=== PATIENT | female | born 1935 | race Caucasian/White ===

== ENCOUNTER 2024-02-18 10:55 | Inpatient (IN) | payer MEDICARE, OTHER ==
[~2024-02-18] VITALS: Ht 162.6 cm; Wt 68.6 kg
[2024-02-18 11:33] LABS: Basophils # (auto) 0 10 ^3/uL (0-0.2); Basophils % (auto) 0.4 % (0.0-2.0); Eosinophils # (auto) 0 10 ^3/uL (0-0.8); Eosinophils % (auto) 0.4 % (0.0-7.0); Hematocrit 41.3 % (36.0-46.0); Hemoglobin 13.7 g/dL (12.2-16.2); Lymphocytes # (auto) 0.9 10 ^3/uL (0.4-5.4); Lymphocytes % (auto) 9.3 % (10.0-50.0); Mean Corpuscular Hemoglobin 30.4 pg (28.0-32.0); Mean Corpuscular Hgb Conc. 33.1 g/dL (32.0-36.0); Mean Corpuscular Volume 91.9 fL (80.0-100.0); Monocytes # (auto) 0.6 10 ^3/uL (0-1.3); Monocytes % (auto) 6.1 % (0.0-12.0); Neutrophils # (auto) 7.8 10 ^3/uL (1.6-8.6); Neutrophils % (auto) 83.8 % (37.0-80.0); Platelet Count (auto) 215 10^3/uL (140-450); White Blood Cell 9.3 10^3/uL (4.4-10.8)
--- NOTE | 2024-02-18 11:33 | ED.PDOC ---
History of Present Illness HPI Comments 88-year-old female with a history of AFib and thyroidectomy brought in by EMS from [facility] complaining of left hip pain due to a fall. Patient states she fell this morning at home, but was subsequently able to get up and ambulate. She states her left lower extremity was having some discomfort after the fall. While she was ambulating at [facility], states her left lower extremity gave out, and she again fell onto her left hip. She denies hitting her head, losing consciousness, or sustaining any other injuries. She states she was unable to weightbear on the left lower extremity after the most recent fall. She denies any numbness, weakness or vision changes. Chief Complaint: Fall Injury Time Seen by MD: 11:00 Primary Care Provider: COCO Post Notes: Nurses Notes, Admeasurer Notes, Medications, Allergies Allergies: Coded Allergies: Penicillins (Verified Allergy, Unknown, 02/18/24) Sulfa Antibiotics (Verified Allergy, Unknown, 02/18/24) Information Source: Patient, Emergency Med Personnel Mode of Arrival: EMS Severity: Moderate Timing: Minutes Duration: Since onset, Minutes Prehospital treatment: None Past Medical History PAST MEDICAL HISTORY: AFIB Surgical History: Hysterectomy, Thyroidectomy VAMP MARKER History: No Pertinent VAMP MARKER History Family History Family History: Reviewed,noncontributory to illness, Unknown Social History Smoker: Non-Smoker Alcohol: Denies ETOH Use Drugs: Denies Drug Use Lives In: Home Constitutional: denies: chills, diaphoresis, fatigue, fever, malaise, sweats, weakness, others EENTM: denies: blurred vision, double vision, ear bleeding, ear discharge, ear drainage, ear pain, ear ringing, eye pain, eye redness, hearing loss, mouth pain, mouth swelling, nasal discharge, nose bleeding, nose congestion, nose pain, photophobia, tearing, throat pain, throat swelling, voice changes, others Respiratory: denies: cough, hemoptysis, orthopnea, SOB at rest, shortness of breath, SOB with excertion, stridor, wheezing, others Cardiovascular: denies: chest pain, dizzy spells, diaphoresis, Dyspnea on exertion, edema, irregular heart beat, left arm pain, lightheadedness, palpitations, PND, syncope, others Gastrointestinal: denies: abdomen distended, abdominal pain, blood streaked bowels, constipated, diarrhea, dysphagia, difficulty swallowing, hematemesis, melena, nausea, poor appetite, poor fluid intake, rectal bleeding, rectal pain, vomiting, others Genitourinary: denies: abnormal vagina bleeding, burning, dyspareunia, dysuria, flank pain, frequency, hematuria, incontinence, pain, , vagina discharge, urgency, others Neurological: denies: dizziness, fainting, headache, left sided numbness, left sided weakness, numbness, paresthesia, pre-existing deficit, right sided numbness, right sided weakness, seizure, speech problems, tingling, tremors, weakness, others Musculoskeletal: reports: others (Hip pain); denies: back pain, gout, joint pain, joint swelling, muscle pain, muscle stiffness, neck pain Integumetry: denies: bruises, change in color, change in hair/nails, dryness, laceration, lesions, lumps, rash, wounds, others Allergic/Immunocompromised: denies: Difficulty Healing, Frequent Infections, Hives, Itching, others Hematologic/Lymphatic: denies: anemia, blood clots, easy bleeding, easy bruising, swollen glands, others Endocrine: denies: excessive hunger, excessive sweating, excessive thirst, excessive urination, flushing, intolerance to cold, intolerance to heat, unexplained weight gain, unexplained weight loss, others Psychiatric: denies: anxiety, bipolar disorder, depression, hopeless, panic disorder, schizophrenia, sleepless, suicidal, others All Other Systems: Reviewed and Negative Physical Exam General Appearance: No Apparent Distress HEENT: PERRL/EOMI, Other (No head, facial or scalp tenderness) Neck: Full Range of Motion, Non-Tender, Normal Inspection, Supple Respiratory: Lungs Clear, No Accessory Muscle Use, No Respiratory Distress, Normal Breath Sounds Cardiovascular: No Edema, No JVD, Regular Rate/Rhythm Breast Exam: Deferred Gastrointestinal: Non Tender, Soft Genitalia: Deferred Pelvic: Deferred Rectal: Deferred Extremities: Tender, Other (Left lower extremity slightly shortened and externally rotated. Pain with internal/external rotation at the left hip joint. Soft tissue tenderness left lateral hip area.) Neurologic: Alert (Oriented x4), Normal Affect, Normal Mood, Other (Moves all extremities. Sensation grossly intact all extremities. No gross focal deficit.) Cerebellar Function: NOT DONE Reflexes: NOT DONE Skin: Dry, Normal Color, Warm Peripheral Pulses: 2+ dorsalis pedis (R), 2+ dorsalis pedis (L) Lymphatic: NOT DONE Was a procedure done? Was a procedure done?: No Differential Dx Considerations may include: Fracture, dislocation, contusion, other soft tissue injury, electrolyte imbalanc e, arrhythmia or other cardiac event, infection, among others X-Ray, Labs, Meds, VS Vital Signs Date Time Temp Pulse Resp B/P (MAP) Pulse Ox O2 Delivery O2 Flow Rate FiO2 02/18/24 12:09 83 18 182/85 02/18/24 12:08 83 18 182/85 (117) 97 02/18/24 11:28 77 02/18/24 10:59 97.7 78 16 161/73 (102) 98 Lab Test 02/18/24 11:24 Range/Units White Blood Count 9.3 4.4-10.8 10^3/uL Red Blood Count 4.50 4.0-5.20 10^6/uL Hemoglobin 13.7 12.2-16.2 g/dL Hematocrit 41.3 36.0-46.0 % Mean Corpuscular Volume 91.9 80.0-100.0 fL Mean Corpuscular Hemoglobin 30.4 28.0-32.0 pg Mean Corpuscular Hemoglobin Concent 33.1 32.0-36.0 g/dL Red Cell Distribution Width 14.0 11.8-14.3 % Platelet Count 215 140-450 10^3/uL Mean Platelet Volume 9.8 6.9-10.8 fL Neutrophils (%) (Auto) 83.8 H 37.0-80.0 % Lymphocytes (%) (Auto) 9.3 L 10.0-50.0 % Monocytes (%) (Auto) 6.1 0.0-12.0 % Eosinophils (%) (Auto) 0.4 0.0-7.0 % Basophils (%) (Auto) 0.4 0.0-2.0 % Neutrophils # (Auto) 7.8 1.6-8.6 10 ^3/uL Lymphocytes # (Auto) 0.9 0.4-5.4 10 ^3/uL Monocytes # (Auto) 0.6 0-1.3 10 ^3/uL Eosinophils # (Auto) 0 0-0.8 10 ^3/uL Basophils # (Auto) 0 0-0.2 10 ^3/uL Nucleated Red Blood Cells 0.0 % Sodium Level 138 136-145 mmol/L Potassium Level 4.2 3.5-5.1 mmol/L Chloride Level 104 98-107 mmol/L Carbon Dioxide Level 26 20-31 mmol/L Anion Gap 8 5-15 Blood Urea Nitrogen 17 9-23 mg/dL Creatinine 0.86 0.550-1.02 mg/dL Glomerular Filtration Rate Calc 66 >90 mL/min BUN/Creatinine Ratio 19.8 10.0-20.0 Serum Glucose 106 74-106 mg/dL Calcium Level 9.6 8.7-10.4 mg/dL Troponin I High Sensitivity 5 </=34 ng/L Current Medications Medications (Trade) Dose Ordered Sig/Jaki Route Start Time Stop Time Status Last Admin Morphine Sulfate 4 mg ONCE ONCE IV 02/18/24 11:30 02/18/24 11:31 DC 02/18/24 12:09 Ondansetron HCl (Zofran) 4 mg ONCE ONCE IV 02/18/24 11:30 02/18/24 11:31 DC 02/18/24 12:08 PROCEDURE(s): PL2CT - PELVIS WO CONTRAST REASON: fall pelvic pain ORDER NUMBER(s): [id number], ACCESSION NUMBER(s): [id number] CT PELVIS WO CONTRAST HISTORY: fall pelvic pain COMPARISON: None PROCEDURE: Helical CT images were obtained of the pelvis and additional CT images of the left hip. Sagittal and coronal reconstructions are provided. ORAL CONTRAST: None. ADDITIONAL IMAGES: None TOTAL RADIATION DOSE: CTDIvol: 21 mGy DLP: 1124 mGy x cm FINDINGS: BOWEL: Severe colonic diverticulosis. Normal appendix. VISUALIZED KIDNEYS AND URETER: Not seen. BLADDER: Normal. REPRODUCTIVE ORGANS: Absent. LYMPH NODES: No lymphadenopathy. PERITONEUM / RETROPERITONEUM: Normal. VESSELS:Atherosclerotic calcifications. ABDOMINAL WALL: Normal. BONES: Comminuted, displaced fracture of the intertrochanteric left femoral neck with mild angulation. IMPRESSION: Comminuted, displaced fracture of the intertrochanteric left femoral neck with mild angulation. EDURE(s): LHPCT - CT L HIP WITH OUT CONTRAST REASON: fall, L hip/pel pain ORDER NUMBER(s): [id number], ACCESSION NUMBER(s): [id number] CT PELVIS WO CONTRAST HISTORY: fall pelvic pain COMPARISON: None PROCEDURE: Helical CT images were obtained of the pelvis and additional CT images of the left hip. Sagittal and coronal reconstructions are provided. ORAL CONTRAST: None. ADDITIONAL IMAGES: None TOTAL RADIATION DOSE: CTDIvol: 21 mGy DLP: 1124 mGy x cm FINDINGS: BOWEL: Severe colonic diverticulosis. Normal appendix. VISUALIZED KIDNEYS AND URETER: Not seen. BLADDER: Normal. REPRODUCTIVE ORGANS: Absent. LYMPH NODES: No lymphadenopathy. PERITONEUM / RETROPERITONEUM: Normal. VESSELS:Atherosclerotic calcifications. ABDOMINAL WALL: Normal. BONES: Comminuted, displaced fracture of the intertrochanteric left femoral neck with mild angulation. IMPRESSION: Comminuted, displaced fracture of the intertrochanteric left femoral neck with mild angulation. EDURE(s): CXRP - CHEST PORTABLE REASON: fall ORDER NUMBER(s): [id number], ACCESSION NUMBER(s): [id number] XY CHEST PORTABLE, HISTORY: fall COMPARISON: None None TECHNICAL DATA: 1 view of the chest was obtained. FINDINGS: Lines and tubes: None Cardiomediastinal silhouette: prominent Pulmonary vasculature: prominent Lung expansion: normal Lung airspace: normal Lung interstitium: prominent Pleura: normal Pneumothorax: no Bones: Unremarkable Other: no IMPRESSION: Mild pulmonary congestion. Senescent lung changes. X-Ray, Labs, Meds, VS Comment 88-year-old female with a history of AFib and thyroidectomy brought in by EMS complaining of left hip pain after a fall prior to which she states her left lower extremity gave out. Vitals remarkable for BP 161/73 Exam remarkable for left hip soft tissue tenderness at the lateral aspect, left lower extremity shortened and externally rotated, painful internal/external rotation of the left hip CT left hip/pelvis IMPRESSION: Comminuted, displaced fracture of the intertrochanteric left femoral neck with mild angulation. CBC, basic metabolic panel and troponin unremarkable. Coag panel and UA pending Patient treated with the following in the ED: Morphine 4 mg IV, Zofran 4 mg IV On re-evaluation, patient stated pain had improved. Vitals were stable. The left lower extremity was neurovascularly intact. Plan is to admit the patient for orthopedic evaluation. Time of 1ST Reevaluation: 11:30 Reevaluation 1ST: Unchanged Patient Education/Counseling: Diagnosis, Treatment, Prognosis Family Education/Counseling: No Family Present Additional Information - The following tests were ordered, and results were reviewed by me: Labs, X- Ray, EKG, CT, PHA - Additional information was gathered from interviewing the following independent Historian: EMT - I reviewed and agreed with the following test results read by other provider: X-ray, CT - I discussed treatments and results with medical personnel and: (consultants, family) Departure 1 Departure Time of Disposition: 12:50 Impression: Primary Impression: Left displaced femoral neck fracture Disposition: ADMITTED INPATIENT Admit to: Med Surg Condition: Fair Critical Care Note Critical Care Time?: No Stability Stability form required: No Heart Score Heart Score: Heart Score Response (Comments) Value History N/A 0 EKG N/A 0 Age N/A 0 Risk Factors N/A 0 Troponin N/A 0 Total 0 I personally scribed for RAMONITA COSME MD ([email or web address]) on 02/18/24 at 11:33. Electronically submitted by Craig Huff ([email or web address]). RAMONITA COSME MD Feb 18, 2024 11:33
[2024-02-18] MEDS: ONDANSETRON HCL 4 MG/2 ML VIAL IV ONE (12:08)
[2024-02-18 12:09] LABS: Anion Gap 8 (5-15)
[2024-02-18] MEDS: MORPHINE SULFATE 4 MG/ML SYR/VIAL IV ONE (12:09)
[2024-02-18 12:14] LABS: BUN/Creatinine Ratio 19.8 (10.0-20.0); Blood Urea Nitrogen 17 mg/dL (9-23)
--- NOTE | 2024-02-18 12:18 | DVH ---
XY CHEST PORTABLE, HISTORY: fall COMPARISON: None None TECHNICAL DATA: 1 view of the chest was obtained. FINDINGS: Lines and tubes: None Cardiomediastinal silhouette: prominent Pulmonary vasculature: prominent Lung expansion: normal Lung airspace: normal Lung interstitium: prominent Pleura: normal Pneumothorax: no Bones: Unremarkable Other: no IMPRESSION: Mild pulmonary congestion. Senescent lung changes.
[2024-02-18 12:26] LABS: Calcium 9.6 mg/dL (8.7-10.4); Carbon Dioxide 26 mmol/L (20-31); Chloride 104 mmol/L (98-107); Glucose 106 mg/dL (74-106); Potassium 4.2 mmol/L (3.5-5.1); Sodium 138 mmol/L (136-145)
--- NOTE | 2024-02-18 12:37 | DVH ---
CT PELVIS WO CONTRAST HISTORY: fall pelvic pain COMPARISON: None PROCEDURE: Helical CT images were obtained of the pelvis and additional CT images of the left hip. Sa gittal and coronal reconstructions are provided. ORAL CONTRAST: None. ADDITIONAL IMAGES: None TOTAL RADIATION DOSE: CTDIvol: 21 mGy DLP: 1124 mGy x cm FINDINGS: BOWEL: Severe colonic diverticulosis. Normal appendix. VISUALIZED KIDNEYS AND URETER: Not seen. BLADDER: Normal. REPRODUCTIVE ORGANS: Absent. LYMPH NODES: No lymphadenopathy. PERITONEUM / RETROPERITONEUM: Normal. VESSELS:Atherosclerotic calcifications. ABDOMINAL WALL: Normal. BONES: Comminuted, displaced fracture of the intertrochanteric left femoral neck with mild angulation . IMPRESSION: Comminuted, displaced fracture of the intertrochanteric left femoral neck with mild angulation.
[2024-02-18 13:27] LABS: INR 1.25 (0.9-1.15); Partial Thromboplastin Time 32.5 SEC (24.5-34.5)
[2024-02-18] MEDS ORDERED: ACETAMINOPHEN 325 MG TAB PO PRN (13:30)
[2024-02-18] MEDS ORDERED: HYDROcodone-ACET 5/325MG TAB PO PRN (13:30)
--- NOTE | 2024-02-18 13:31 | DVHHP2 ---
History of Present Illness Reason for Visit: Left hip pain, fall History of Present Illness This 88 year old female presents in the ED via EMS with a chief complaint of left hip pain s/p fall. The patient reports accidentally tripped over something causing mechanical fall at home early this morning. The patient states she was able to get up and ambulate with mild pain on the left hip. The patient reports while at [employer] left lower leg gave out causing another fall episode. Denies dizziness, syncope, chest pain, shortness of breath, or other acute symptoms. Past medical history of atrial fibrillation on Xarelto, thyroidectomy, and osteoporosis. Past Medical History As stated in HPI Past Surgical History Hysterectomy Thyroidectomy Family History Reviewed, non-contributory to the management of this case. Past Social History The patient lives at home, denies smoking, alcohol or illicit drugs abuse. Review of Systems Constitutional: Yes: Malaise; No: Fever, Chills, Sweats, Weakness, Other Eyes: No: Pain, Vision change, Conjunctivae inflammation, Eyelid inflammation, Other, Redness ENT: No: Ear pain, Ear discharge, Nose pain, Nose discharge, Nose congestion, Mouth pain, Mouth swelling, Throat pain, Throat swelling, Other Respiratory: No: Cough, Dry, Shortness of breath, SOB with excertion, Wheezing, Hemoptysis, Pleuritic Pain, Sputum, Wheezing, Other Cardiovascular: No: Chest Pain, Palpitations, Orthopnea, Paroxysmal Noc. Dyspnea, Edema, Lt Headedness, Other Gastrointestinal: No: Nausea, Vomiting, Abdominal Pain, Diarrhea, Constipation, Melena, Hematochezia, Other Genitourinary: No Dysuria, No Frequency, No Incontinence, No Hematuria, No Retention, No Other Musculoskeletal: other (Left hip pain); No: neck pain, shoulder pain, arm pain, back pain, hand pain, leg pain, foot pain Skin: No: Rash, Lesions, Jaundice, Bruising, Other Neurological: No: Weakness, Numbness, Incoordination, Change in speech, Confusion, Seizures, Other Allergies: Coded Allergies: Penicillins (Verified Allergy, Unknown, 02/18/24) Sulfa Antibiotics (Verified Allergy, Unknown, 02/18/24) Exam Vital Signs Vital Signs Date Time Temp Pulse Resp B/P (MAP) Pulse Ox O2 Delivery O2 Flow Rate FiO2 02/18/24 12:09 83 18 182/85 02/18/24 12:08 97 02/18/24 10:59 97.7 General Appearance: Alert, Oriented X3, Cooperative, mild distress HEENT: Atraumatic, PERRLA, EOMI, Mucous membr. moist/pink Respiratory: Clear to auscultation, Normal air movement Cardiovascular: Regular rate, Normal S1, Normal S2 Abdominal: Normal bowel sounds, Soft, No tenderness Extremities: No clubbing, No cyanosis, No edema, Normal pulses, Other (Left hip tenderness in palpation, decreased ROM due to pain) Skin: No rashes, No breakdown, No significant lesion Neuro: Normal speech, Normal tone Psych/Mental Status: Mental status NL Labs/Xrays Labs Test 02/18/24 13:06 02/18/24 11:24 Range/Units White Blood Count 9.3 4.4-10.8 10^3/uL Red Blood Count 4.50 4.0-5.20 10^6/uL Hemoglobin 13.7 12.2-16.2 g/dL Hematocrit 41.3 36.0-46.0 % Mean Corpuscular Volume 91.9 80.0-100.0 fL Mean Corpuscular Hemoglobin 30.4 28.0-32.0 pg Mean Corpuscular Hemoglobin Concent 33.1 32.0-36.0 g/dL Red Cell Distribution Width 14.0 11.8-14.3 % Platelet Count 215 140-450 10^3/uL Mean Platelet Volume 9.8 6.9-10.8 fL Neutrophils (%) (Auto) 83.8 H 37.0-80.0 % Lymphocytes (%) (Auto) 9.3 L 10.0-50.0 % Monocytes (%) (Auto) 6.1 0.0-12.0 % Eosinophils (%) (Auto) 0.4 0.0-7.0 % Basophils (%) (Auto) 0.4 0.0-2.0 % Neutrophils # (Auto) 7.8 1.6-8.6 10 ^3/uL Lymphocytes # (Auto) 0.9 0.4-5.4 10 ^3/uL Monocytes # (Auto) 0.6 0-1.3 10 ^3/uL Eosinophils # (Auto) 0 0-0.8 10 ^3/uL Basophils # (Auto) 0 0-0.2 10 ^3/uL Nucleated Red Blood Cells 0.0 % Sodium Level 138 136-145 mmol/L Potassium Level 4.2 3.5-5.1 mmol/L Chloride Level 104 98-107 mmol/L Carbon Dioxide Level 26 20-31 mmol/L Anion Gap 8 5-15 Blood Urea Nitrogen 17 9-23 mg/dL Creatinine 0.86 0.550-1.02 mg/dL Glomerular Filtration Rate Calc 66 >90 mL/min BUN/Creatinine Ratio 19.8 10.0-20.0 Serum Glucose 106 74-106 mg/dL Calcium Level 9.6 8.7-10.4 mg/dL PROCEDURE(s): LHPCT - CT L HIP WITH OUT CONTRAST REASON: fall, L hip/pel pain ORDER NUMBER(s): [id number], ACCESSION NUMBER(s): [id number] CT PELVIS WO CONTRAST HISTORY: fall pelvic pain COMPARISON: None PROCEDURE: Helical CT images were obtained of the pelvis and additional CT images of the left hip. Sagittal and coronal reconstructions are provided. ORAL CONTRAST: None. ADDITIONAL IMAGES: None TOTAL RADIATION DOSE: CTDIvol: 21 mGy DLP: 1124 mGy x cm FINDINGS: BOWEL: Severe colonic diverticulosis. Normal appendix. VISUALIZED KIDNEYS AND URETER: Not seen. BLADDER: Normal. REPRODUCTIVE ORGANS: Absent. LYMPH NODES: No lymphadenopathy. PERITONEUM / RETROPERITONEUM: Normal. VESSELS:Atherosclerotic calcifications. ABDOMINAL WALL: Normal. BONES: Comminuted, displaced fracture of the intertrochanteric left femoral neck with mild angulation. IMPRESSION: Comminuted, displaced fracture of the intertrochanteric left femoral neck with mild angulation. Assessment/Plan Assessment/Plan # Left, displaced femoral neck fracture # s/p mechanical fall Admit to medical surgical unit Surgical consult Bedrest Dugan catheter Echocardiogram Fall risk precautions DVT prophylaxis # paroxysmal AFib Multaq Xarelto (hold) # s/p thyroidectomy Synthroid # osteoporosis Ibandronate DVT prophylaxis Medical plan discussed with patient and RN Plan discussed with: Patient Date of Service: Feb 18, 2024 Billing Provider: SENIA CHAPARRO Common Visit Codes: [id number] INP/OBS CARE (HIGH) SENIA CHAPARRO Feb 18, 2024 13:31
[2024-02-18] MEDS: SODIUM CHLORIDE 0.9% 1,000 ML IV SCH (14:02)
[2024-02-18] MEDS ORDERED: DRON400T PO (14:19)
[2024-02-18] MEDS ORDERED: LEVO112T2 PO (14:19)
[2024-02-18 16:29] VITALS: BP 107/56; PULSE 72; RESP 19; TEMP 97.8; O2SAT 93
[2024-02-18 17:02] VITALS: BP 107/56; PULSE 72; RESP 19; TEMP 97.8; O2SAT 93
--- NOTE | 2024-02-18 18:53 | ECG ---
[facility] Test Date: 2024-02-18 Test Time: 11:28:34 Pat Name: LIAM MILLER Department: ER Room: 0296 B Gender: F Appliance Repairer: BRITTNY : 1935 Requested By: RAMONITA BLACKBURN Order Number: [id number] Reading MD: Ishaan Mccann Measurements Intervals [place] Rate: 77 P: -37 LA: 162 QRS: 87 QRSD: 139 T: -54 QT: 389 QTc: 441 Interpretive Statements Sinus rhythm Probable LVH with secondary repol abnrm Anterior ST elevation, probably due to LVH Electronically Signed On 02-21-2024 16:11:43 PST by Ishaan Mccann Please click the below link to view image of tracing.
[2024-02-18 20:00] VITALS: PULSE 89; RESP 18; O2SAT 92
[2024-02-18 21:00] VITALS: BP 133/58; PULSE 89; RESP 18; TEMP 91.4; O2SAT 92
[2024-02-18] MEDS: MORPHINE SULFATE INJ 2 MG/ml SYRG IV PRN (21:22)
[2024-02-19] VITALS (7 sets, daily range): BP systolic 118–146; BP diastolic 45–52; PULSE 65–138; RESP 13–20; TEMP 97.4–98; O2SAT 89–95
[2024-02-19] MEDS ORDERED: KETAMINE 50mg/ML 10ml Vial 10 ML ONE (07:00)
[2024-02-19] MEDS ORDERED: fentaNYL CITRATE 100 MCG/2 ML VL ONE (07:00)
[2024-02-19] MEDS ORDERED: MIDAZOLAM HCL 2MG/2ML 2ml VIAL (1mg/ml) ONE (07:00)
[2024-02-19] MEDS ORDERED: LIDOCAINE 2% (LOCAL ANESTH.) PF 5ml SDV ONE (07:01)
[2024-02-19] MEDS ORDERED: GLYCOPYRROLATE 0.2 MG/ML 1ML VIAL ONE (07:01)
[2024-02-19] MEDS ORDERED: PROPOFOL 10 MG/ML 20 ML IV ONE (07:01)
[2024-02-19] MEDS ORDERED: ONDANSETRON HCL 4 MG/2 ML VIAL ONE (07:01)
[2024-02-19] MEDS ORDERED: DexAMETHasone SOD PHOS 10MG/1ML VIAL INJ ONE (07:01)
[2024-02-19 07:19] LABS: Basophils # (auto) 0 10 ^3/uL (0-0.2); Basophils % (auto) 0.3 % (0.0-2.0); Eosinophils # (auto) 0 10 ^3/uL (0-0.8); Eosinophils % (auto) 0.3 % (0.0-7.0); Hematocrit 35.1 % (36.0-46.0); Hemoglobin 11.7 g/dL (12.2-16.2); Lymphocytes # (auto) 0.9 10 ^3/uL (0.4-5.4); Lymphocytes % (auto) 10.9 % (10.0-50.0); Mean Corpuscular Hemoglobin 30.7 pg (28.0-32.0); Mean Corpuscular Hgb Conc. 33.4 g/dL (32.0-36.0); Mean Corpuscular Volume 91.9 fL (80.0-100.0); Monocytes # (auto) 0.8 10 ^3/uL (0-1.3); Monocytes % (auto) 10.2 % (0.0-12.0); Neutrophils # (auto) 6.1 10 ^3/uL (1.6-8.6); Neutrophils % (auto) 78.3 % (37.0-80.0); Platelet Count (auto) 192 10^3/uL (140-450); Red Blood Cells 3.82 10^6/uL (4.0-5.20); White Blood Cell 7.8 10^3/uL (4.4-10.8)
[2024-02-19 07:30] LABS: Alanine Aminotransferase 13 U/L (7-40); Albumin 3.7 g/dL (3.2-4.8); Alkaline Phosphatase 52 U/L (46-116); Anion Gap 7 (5-15); Aspartate Aminotransferase 22 U/L (13-40); BUN/Creatinine Ratio 19.2 (10.0-20.0); Blood Urea Nitrogen 19 mg/dL (9-23); Calcium 9.2 mg/dL (8.7-10.4); Carbon Dioxide 27 mmol/L (20-31); Chloride 105 mmol/L (98-107); Sodium 139 mmol/L (136-145)
[2024-02-19] MEDS ORDERED: HYDROmorphone HCL 2 MG/ML VL/or syr IV PRN (07:30)
[2024-02-19 07:31] LABS: Total Protein 6.2 g/dL (5.7-8.2)
[2024-02-19 07:33] LABS: Glucose 106 mg/dL (74-106)
--- NOTE | 2024-02-19 07:40 | DVHINCON2 ---
Date of service: Feb 19, 2024 Referring Physician ED Reason for Consultation Left hip fracture History of Present Illness This 88 year old female presents in the ED via EMS with a chief complaint of left hip pain s/p fall. The patient reports accidentally tripped over something causing mechanical fall at home yesterday. The patient states she was able to get up and ambulate with mild pain on the left hip. The patient reports while at [employer] left lower leg gave out causing another fall episode. Denies dizziness, syncope, chest pain, shortness of breath, or other acute symptoms. Past medical history of atrial fibrillation on Xarelto, thyroidectomy, and osteoporosis. Past Medical History As stated in HPI Past Surgical History Hysterectomy Thyroidectomy Family History Reviewed, non-contributory to the management of this case. Past Social History The patient lives at home, denies smoking, alcohol or illicit drugs abuse. Allergies: Coded Allergies: Penicillins (Verified Allergy, Unknown, 02/18/24) Sulfa Antibiotics (Verified Allergy, Unknown, 02/18/24) Home Meds Reported Medications Levothyroxine Sodium (Synthroid) 112 Mcg Tab, 1 TAB PO DAILY 02/18/24 Dronedarone Hydrochloride (Multaq) 400 Mg Tab, 1 TAB PO BID 02/18/24 Current Medications Current Medications Medications (Trade) Dose Ordered Sig/Jaki Route PRN Reason Start Time Stop Time Status Last Admin Sodium Chloride 1,000 ml @ 60 mls/hr [id number] IV 02/18/24 13:30 02/19/24 06:28 Acetaminophen/ Hydrocodone Bitart ([place] 5/325MG Tab) 1 tab Q4HP PRN PO MODERATE PAIN (4-6 PAIN SCALE) 02/18/24 13:30 Acetaminophen (Tylenol Tablet) 650 mg Q6HP PRN PO PAIN SCALE 1-3 OR TEMP>100.4 02/18/24 13:30 Morphine Sulfate 2 mg Q4HPRN PRN IV SEVERE PAIN (7-10 PAIN SCALE) 02/18/24 13:30 02/18/24 21:22 Enoxaparin Sodium (Lovenox) 40 mg DAILY SC 02/19/24 10:00 Hydromorphone HCl (Dilaudid Injection) 0.5 mg Q10M PRN IV SEVERE PAIN (7-10 PAIN SCALE) 02/19/24 07:30 02/19/24 08:11 UNV Review of Systems Negative on 10 point review except as above Vital Signs Vital Signs Date Time Temp Pulse Resp B/P (MAP) Pulse Ox O2 Delivery O2 Flow Rate FiO2 02/19/24 05:00 97.4 85 18 125/50 (75) 89 97.4 02/18/24 20:00 Room Air* 0 21 Physical Exam Well-developed well-nourished female in no acute distress Alert and oriented x4 Left lower extremity is short and rotated She has some left thigh swelling though skin is intact Proximal thigh tenderness to palpation Any passive range of motion left lower extremity causes severe left hip pain There was no significant distal calf or pedal edema She is able to flex extend her ankle and sensation is intact 2+ DP pulse CT scan of her pelvis reveals a severely comminuted intertroch/subtrochanteric fracture of her left proximal femur Labs/Diagnostic Data Labs Test 02/19/24 06:33 02/18/24 13:06 02/18/24 11:24 Range/Units White Blood Count 7.8 4.4-10.8 10^3/uL Red Blood Count 3.82 L 4.0-5.20 10^6/uL Hemoglobin 11.7 L 12.2-16.2 g/dL Hematocrit 35.1 #L 36.0-46.0 % Mean Corpuscular Volume 91.9 80.0-100.0 fL Mean Corpuscular Hemoglobin 30.7 28.0-32.0 pg Mean Corpuscular Hemoglobin Concent 33.4 32.0-36.0 g/dL Red Cell Distribution Width 14.0 11.8-14.3 % Platelet Count 192 140-450 10^3/uL Mean Platelet Volume 10.0 6.9-10.8 fL Neutrophils (%) (Auto) 78.3 37.0-80.0 % Lymphocytes (%) (Auto) 10.9 10.0-50.0 % Monocytes (%) (Auto) 10.2 0.0-12.0 % Eosinophils (%) (Auto) 0.3 0.0-7.0 % Basophils (%) (Auto) 0.3 0.0-2.0 % Neutrophils # (Auto) 6.1 1.6-8.6 10 ^3/uL Lymphocytes # (Auto) 0.9 0.4-5.4 10 ^3/uL Monocytes # (Auto) 0.8 0-1.3 10 ^3/uL Eosinophils # (Auto) 0 0-0.8 10 ^3/uL Basophils # (Auto) 0 0-0.2 10 ^3/uL Nucleated Red Blood Cells 0.0 % Sodium Level 139 136-145 mmol/L Potassium Level 4.0 3.5-5.1 mmol/L Chloride Level 105 98-107 mmol/L Carbon Dioxide Level 27 20-31 mmol/L Anion Gap 7 5-15 Blood Urea Nitrogen 19 9-23 mg/dL Creatinine 0.99 0.550-1.02 mg/dL Glomerular Filtration Rate Calc 55 >90 mL/min BUN/Creatinine Ratio 19.2 10.0-20.0 Serum Glucose 106 74-106 mg/dL Calcium Level 9.2 8.7-10.4 mg/dL Total Bilirubin 1.0 0.2-1.0 mg/dL Aspartate Amino Transferase (AST) 22 13-40 U/L Alanine Aminotransferase (ALT) 13 7-40 U/L Alkaline Phosphatase 52 46-116 U/L Total Protein 6.2 5.7-8.2 g/dL Albumin 3.7 3.2-4.8 g/dL Troponin I High Sensitivity 5 </=34 ng/L Prothrombin Time 13.0 H 9.3-11.8 sec Prothrombin Time INR 1.25 H 0.9-1.15 Activated Partial Thromboplast Time 32.5 24.5-34.5 SEC Assessment Acute displaced left proximal femur intertroch/subtrochanteric fracture Plan/Recommendation Closed versus open reduction, cephalomedullary nail I explained the procedure, diagnosis, prognosis, treatment options, and risks which include but are not limited to infection, bleeding, transfusion, malunion, nonunion, iatrogenic fracture, nerve injury, DVT, PE, and even . Patient understood and agreed to proceed. All questions answered. Plan discussed with: Patient FRANNY MAYER MD Feb 19, 2024 07:39
[2024-02-19] MEDS ORDERED: HYDROmorphone HCL 2 MG/ML VL/or syr ONE (07:57)
--- NOTE | 2024-02-19 09:03 | DVHOP2 ---
Operative Report - 2 Report Details Date: 02/19/24 Preop Diagnosis: Left proximal femur displaced comminuted intertroch/subtrochanteric fracture Postop Diagnosis: Same Surgeon: Rory Mayer MD Anesthesiologist: Jean Claude Anesthesia: Regional Implant: Orthofix cephalomedullary nail short with 90 mm hip screw 80 mm derotation screw and 30 mm distal locking screw, 130 degree angle, 10 mm diameter Consent: The patient was informed of the risks and benefits of the procedure. These include but are not limited to complications of anesthesia, postoperative infection, incomplete relief of symptoms, recurrence of symptoms, damage to blood vessels, nerves and tendons, deep venous thrombosis, pulmonary embolism and possible need for repeat surgery in the future. Complications: None Estimated Blood Loss: 75 cc Fluids: See anesthesia record Findings: Left proximal femur comminuted, displaced intertrochanteric/subtrochanteric fracture Indications for Surgery: Unstable hip fracture Name of Procedure Performed Closed reduction, cephalomedullary nail left proximal femur intertrochanteric/subtrochanteric fracture, C-arm fluoroscopy Procedure Details Procedure Details: The patient was brought to the operating room and placed on the [place] table in the supine position. The patient was given spinal anesthetic with adequate analgesia obtained. Preop patient received IV Ancef. Nonoperative extremity was placed in the well-leg lockett. Operative extremity placed in boot traction. Closed reduction maneuver performed and verified with C-arm fluoroscopy in AP and lateral views. Surgical timeout performed verifying patient, laterality and procedure. Operative extremity was prepped and draped in sterile fashion. Incision was made proximal to the greater trochanter then I incised the fascia. I passed a guidewire into the proximal femur and adjusted the position based on AP and lateral views with C arm. I used the soft tissue protector and reamed over the guidewire then guidewire was removed. I then inserted the previously templated nail until appropriate depth was reached based on C-arm fluoroscopy. I then passed the hip screw cannula to skin then made skin and fascial incision and passed it to bone. I inserted a guidewire into the proximal femoral neck and head and again adjusted position based on C arm. I measured for length. I then used the guidewire for the derotation screw setting length at 10 mm less than the hip screw length. I then reamed and inserted the hip screw. I then inserted the derotation screw. Guidewire and cannulas were removed. I then used the distal locking cannula through the static hole passing it to skin and making skin and fascial incision then passing it to bone. I drilled and measured length off the drill bit and inserted distal locking screw. I obtain C arm views AP and lateral throughout the length of the construct to verify fracture reduction and hardware placement. Wounds were irrigated with normal saline. Fascial tissue closed with 0 Vicryl. Subcu closed with 2-0 Vicryl. Skin closed with michelle. Wounds dressed sterilely. Patient tolerated procedure well was brought to recovery in stable condition. Condition Stable Disposition Still a Patient RORY MAYER MD Feb 19, 2024 09:03
[2024-02-19] MEDS: ENOXAPARIN SOD 40 MG/0.4 ML SYRINGE SC SCH (10:00)
--- NOTE | 2024-02-19 10:12 | DVH ---
FLUOROSCOPY TIME: 46.1 seconds TECHNIQUE: Intraoperative radiographs of the left hip were obtained. COMPARISON: None FINDINGS: Refer to intraoperative report for further evaluation. IMPRESSION: Refer to intraoperative report for further evaluation.
--- NOTE | 2024-02-19 10:12 | DVH ---
FLUOROSCOPY TIME: 46.1 seconds TECHNIQUE: Intraoperative radiographs of the left hip were obtained. COMPARISON: None FINDINGS: Refer to intraoperative report for further evaluation. IMPRESSION: Refer to intraoperative report for further evaluation.
[2024-02-19] MEDS: ceFAZolin 2 GM/D5W50ml 50 ML IV SCH (16:22)
[2024-02-19] MEDS: SODIUM CHLOR 0.9% PF (SALINE LOCK) 10ML VIAL/SYR IV SCH (16:22)
[2024-02-19] MEDS: DexAMETHasone SOD PHOS 4 MG/1ML SDV INJ ONE (16:30)
[2024-02-19] MEDS: ceFAZolin 2 GM/D5W100ml 100 ML IV ONE (16:30)
[2024-02-19] MEDS: EPINEPHrine HCL 1 MG/1 ML AMP ONE (16:30)
[2024-02-19] MEDS: ONDANSETRON HCL 4 MG/2 ML VIAL IV ONE (16:31)
[2024-02-19] MEDS: LACTATED RINGER'S 1,000 ML IV SCH (16:31)
--- NOTE | 2024-02-19 17:07 | DVHPN2 ---
Subjective 89-year-old female with a history of atrial fibrillation, hypothyroidism, osteoporosis fell at home and sustained a fracture of the left hip She underwent surgery today She had ORIF Her primary care physician is Dr. Guerrero and her floor trader is Dr. Kerr Changes from previous H/P or p: Changes Eyes: No Pain, No Vision change, No Conjunctivae inflammation, No Eyelid inflammation, No Other, No Redness ENT: No Ear pain, No Ear discharge, No Nose pain, No Nose discharge, No Nose congestion, No Mouth pain, No Mouth swelling, No Throat pain, No Throat swelling, No Other Cardiovascular: No Chest Pain, No Palpitations, No Orthopnea, No Paroxysmal Noc. Dyspnea, No Edema, No Lt Headedness, No Other Respiratory: No Cough, No Dry, No Shortness of breath, No SOB with excertion, No Wheezing, No Hemoptysis, No Pleuritic Pain, No Sputum, No Other Gastrointestinal: No Nausea, No Vomiting, No Abdominal Pain, No Diarrhea, No Constipation, No Melena, No Hematochezia, No Other Genitourinary: No Dysuria, No Frequency, No Incontinence, No Hematuria, No Retention, No Other Musculoskeletal: other (Left hip pain); No neck pain, No shoulder pain, No arm pain, No back pain, No hand pain, No leg pain, No foot pain Skin: No Rash, No Lesions, No Jaundice, No Bruising, No Other Objective Vitals Vital Signs Date Time Temp Pulse Resp B/P (MAP) Pulse Ox O2 Delivery O2 Flow Rate FiO2 02/19/24 13:21 97.5 65 15 118/52 (74) 95 97.5 02/19/24 09:05 Mask 6.0 95 Intake/Output Intake and Output 02/19/24 07:00 Intake Total 300 ml Output Total 100 ml Balance 200 ml Intake Oral 200 ml IV Total 100 ml Output Urine Total 100 ml # Voids 2 # Bowel Movements 1 General Appearance: Alert, Oriented X3, Cooperative, No acute distress Lungs: Clear to auscultation, Normal air movement Cardiovascular: Regular rate, Normal S1, Normal S2 Abdomen: Normal bowel sounds, Soft, No tenderness Extremities: No edema Medications Current Medications Medications Dose Ordered Sig/Jaki Route Start Time Stop Time Status Last Admin Dose Admin Sodium Chloride 1,000 ml @ 60 mls/hr [id number] IV 02/18/24 13:30 02/19/24 06:28 60 MLS/HR Acetaminophen 650 mg Q6HP PRN PO 02/18/24 13:30 Morphine Sulfate 2 mg Q4HPRN PRN IV 02/18/24 13:30 02/18/24 21:22 2 MG Enoxaparin Sodium 40 mg DAILY SC 02/19/24 10:00 Lactated Ringer's 1,000 ml @ 100 mls/hr Q10H IV 02/19/24 09:15 Hold Sodium Chloride 10 ml Q8HR IV 02/19/24 14:00 02/19/24 16:22 10 ML Acetaminophen/ Hydrocodone Bitart 1 tab Q4HP PRN PO 02/19/24 09:15 Hold Cefazolin Sodium/ Dextrose 50 ml @ 50 mls/hr Q8HR IV 02/19/24 14:00 02/19/24 22:59 02/19/24 16:22 50 MLS/HR Levothyroxine Sodium 112 mcg DAILY PO 02/20/24 10:00 UNV Patient Own Medication 1 tab BID PO 02/19/24 22:00 UNV Laboratory Results Laboratory Tests 02/19/24 06:33 Chemistry Test 02/19/24 06:33 Albumin 3.7 g/dL (3.2-4.8) Calcium Level 9.2 mg/dL (8.7-10.4) Total Protein 6.2 g/dL (5.7-8.2) LFT Test 02/19/24 06:33 Alanine Aminotransferase (ALT) 13 U/L (7-40) Alkaline Phosphatase 52 U/L (46-116) Aspartate Amino Transferase (AST) 22 U/L (13-40) Total Bilirubin 1.0 mg/dL (0.2-1.0) Assessment/Plan Assessment/Plan Left proximal femur displaced fracture status post ORIF Chronic atrial fibrillation, controlled rate Osteoporosis Hypothyroidism Acute anemia due to blood loss Plan Get physical therapy evaluation Pain management as needed NS IV fluids Resume levothyroxine Resume Multaq home dose Xarelto 20 mg daily Full code Goals of care discussion with the patient discussed for more than 15 minutes Plan discussed with: Patient My Orders Orders - SHASTA GILLESPIE MD Procedure Category Date Status Time Levothyroxine Tablet PHA 02/20/24 Logged (Synthroid Tablet) 10:00 (Nf) Dronedarone PHA 02/19/24 Logged Hydrochloride (Multaq) 22:00 Date of Service: Feb 19, 2024 Billing Provider: SHASTA GILLESPIE MD Common Visit Codes: [id number] INP/OBS CARE(HIGH) Secondary Visit Codes: [id number] CARE PLAN 30 MINUTES SHASTA GILLESPIE MD Feb 19, 2024 17:07
[2024-02-19] MEDS ORDERED: DRONEDARONE HCL 400 MG TAB PO ONE (22:00)
[2024-02-19] MEDS: DRONEDARONE HYDROCHLORIDE 400 MG PO SCH (22:05)
[2024-02-20] VITALS (8 sets, daily range): BP systolic 111–137; BP diastolic 43–61; PULSE 69–88; RESP 16–20; TEMP 97.3–98.2; O2SAT 90–96
[2024-02-20 07:05] LABS: Basophils # (auto) 0 10 ^3/uL (0-0.2); Basophils % (auto) 0.1 % (0.0-2.0); Eosinophils # (auto) 0 10 ^3/uL (0-0.8); Hematocrit 27.9 % (36.0-46.0); Hemoglobin 9.3 g/dL (12.2-16.2); Lymphocytes # (auto) 0.7 10 ^3/uL (0.4-5.4); Lymphocytes % (auto) 5.9 % (10.0-50.0); Mean Corpuscular Hemoglobin 30.4 pg (28.0-32.0); Mean Corpuscular Hgb Conc. 33.4 g/dL (32.0-36.0); Monocytes # (auto) 0.9 10 ^3/uL (0-1.3); Monocytes % (auto) 7.1 % (0.0-12.0); Neutrophils # (auto) 10.6 10 ^3/uL (1.6-8.6); Neutrophils % (auto) 86.9 % (37.0-80.0); Platelet Count (auto) 175 10^3/uL (140-450); Red Blood Cells 3.07 10^6/uL (4.0-5.20); Red Cell Distribution Width 13.8 % (11.8-14.3); White Blood Cell 12.2 10^3/uL (4.4-10.8)
[2024-02-20 07:32] LABS: Alanine Aminotransferase 14 U/L (7-40); Albumin 3.4 g/dL (3.2-4.8); Alkaline Phosphatase 46 U/L (46-116); Anion Gap 5 (5-15); Aspartate Aminotransferase 33 U/L (13-40); BUN/Creatinine Ratio 17.9 (10.0-20.0); Bilirubin, Total 0.5 mg/dL (0.2-1.0); Blood Urea Nitrogen 14 mg/dL (9-23); Calcium 8.8 mg/dL (8.7-10.4); Carbon Dioxide 28 mmol/L (20-31); Chloride 105 mmol/L (98-107); Glucose 116 mg/dL (74-106); Magnesium 2.3 mg/dL (1.6-2.6); Sodium 138 mmol/L (136-145); Total Protein 5.7 g/dL (5.7-8.2)
[2024-02-20] MEDS: LEVOTHYROXINE SODIUM 112 MCG TAB PO SCH (09:56)
[2024-02-20] MEDS: HYDROcodone-ACET 10/325MG TAB PO PRN (09:57)
--- NOTE | 2024-02-20 14:27 | DVHPN2 ---
Progress Note - Dictate Date Seen: Feb 20, 2024 Medical Necessity Reason Pt with a Central, PICC or Fol: No Subjective no acute events overnight. Stood at bedside with physical therapy this morning though got a little dizzy so she had limited session. vital signs Vital Sign Date Time Temp Pulse Resp B/P (MAP) Pulse Ox O2 Delivery O2 Flow Rate FiO2 02/20/24 13:08 97.9 81 17 111/47 (68) 90 97.9 02/20/24 08:00 Room Air* 0 21 Total Intake and Output 02/19/24 02/19/24 02/20/24 15:00 23:00 07:00 Intake Total 1050 ml 700 ml Output Total 200 ml 2000 ml Balance 850 ml -1300 ml medications Current Medications Medications Dose Ordered Sig/Jaki Route Start Time Stop Time Status Last Admin Dose Admin Sodium Chloride 1,000 ml @ 60 mls/hr [id number] IV 02/18/24 13:30 02/19/24 22:54 60 MLS/HR Acetaminophen 650 mg Q6HP PRN PO 02/18/24 13:30 Morphine Sulfate 2 mg Q4HPRN PRN IV 02/18/24 13:30 02/18/24 21:22 2 MG Sodium Chloride 10 ml Q8HR IV 02/19/24 14:00 02/20/24 06:01 10 ML Acetaminophen/ Hydrocodone Bitart 1 tab Q4HP PRN PO 02/19/24 09:15 02/20/24 09:57 1 TAB Patient Own Medication 1 tab BID PO 02/19/24 22:00 02/20/24 09:56 1 TAB Levothyroxine Sodium 112 mcg DAILY PO 02/21/24 07:00 objective Alert and oriented x4 Dressing at the left thigh is dry and intact No calf or pedal edema No calf tenderness Distal neurovascularly intact laboratory and microbiology Laboratory Tests 02/20/24 04:40 Test 02/20/24 04:40 Range/Units Serum Glucose 116 H 74-106 mg/dL Assessment/Plan Acute displaced left proximal femur intertroch/subtrochanteric fracture POD #1 s/p closed reduction cephalomedullary nail acute expected postop blood loss anemia Plan; local wound care dvt Prophylaxis PT WBAT with PT FU Ortho 10 -14 days for wound checks and staple removal OK to transfer to SNF when cleared by medical team Plan discussed with: Patient FRANNY MAYER MD Feb 20, 2024 14:27
--- NOTE | 2024-02-20 14:55 | DVHPN2 ---
Subjective Doing well No complaints She needs to go to rehab Changes from previous H/P or p: Changes Eyes: No Pain, No Vision change, No Conjunctivae inflammation, No Eyelid inflammation, No Other, No Redness ENT: No Ear pain, No Ear discharge, No Nose pain, No Nose discharge, No Nose congestion, No Mouth pain, No Mouth swelling, No Throat pain, No Throat swelling, No Other Cardiovascular: No Chest Pain, No Palpitations, No Orthopnea, No Paroxysmal Noc. Dyspnea, No Edema, No Lt Headedness, No Other Respiratory: No Cough, No Dry, No Shortness of breath, No SOB with excertion, No Wheezing, No Hemoptysis, No Pleuritic Pain, No Sputum, No Other Gastrointestinal: No Nausea, No Vomiting, No Abdominal Pain, No Diarrhea, No Constipation, No Melena, No Hematochezia, No Other Genitourinary: No Dysuria, No Frequency, No Incontinence, No Hematuria, No Retention, No Other Musculoskeletal: other (Left hip pain); No neck pain, No shoulder pain, No arm pain, No back pain, No hand pain, No leg pain, No foot pain Skin: No Rash, No Lesions, No Jaundice, No Bruising, No Other Objective Vitals Vital Signs Date Time Temp Pulse Resp B/P (MAP) Pulse Ox O2 Delivery O2 Flow Rate FiO2 02/20/24 14:19 68 16 111/68 02/20/24 13:08 97.9 90 97.9 02/20/24 08:00 Room Air* 0 21 Intake/Output Intake and Output 02/20/24 07:00 Intake Total 1750 ml Output Total 2200 ml Balance -450 ml Intake Oral 1650 ml IV Total 100 ml Output Urine Total 2200 ml General Appearance: Alert, Oriented X3, Cooperative, No acute distress Lungs: Clear to auscultation, Normal air movement Cardiovascular: Regular rate, Normal S1, Normal S2 Abdomen: Normal bowel sounds, Soft, No tenderness Extremities: No edema Medications Current Medications Medications Dose Ordered Sig/Jaki Route Start Time Stop Time Status Last Admin Dose Admin Sodium Chloride 1,000 ml @ 60 mls/hr [id number] IV 02/18/24 13:30 02/19/24 22:54 60 MLS/HR Acetaminophen 650 mg Q6HP PRN PO 02/18/24 13:30 Morphine Sulfate 2 mg Q4HPRN PRN IV 02/18/24 13:30 02/20/24 14:19 2 MG Sodium Chloride 10 ml Q8HR IV 02/19/24 14:00 02/20/24 14:18 10 ML Acetaminophen/ Hydrocodone Bitart 1 tab Q4HP PRN PO 02/19/24 09:15 02/20/24 09:57 1 TAB Patient Own Medication 1 tab BID PO 02/19/24 22:00 02/20/24 09:56 1 TAB Levothyroxine Sodium 112 mcg DAILY PO 02/21/24 07:00 Laboratory Results Laboratory Tests 02/20/24 04:40 Chemistry Test 02/20/24 04:40 Albumin 3.4 g/dL (3.2-4.8) Calcium Level 8.8 mg/dL (8.7-10.4) Magnesium Level 2.3 mg/dL (1.6-2.6) Total Protein 5.7 g/dL (5.7-8.2) LFT Test 02/20/24 04:40 Alanine Aminotransferase (ALT) 14 U/L (7-40) Alkaline Phosphatase 46 U/L (46-116) Aspartate Amino Transferase (AST) 33 U/L (13-40) Total Bilirubin 0.5 mg/dL (0.2-1.0) Assessment/Plan Assessment/Plan Left proximal femur displaced fracture status post ORIF Chronic atrial fibrillation, controlled rate Osteoporosis Hypothyroidism Acute anemia due to blood loss Plan Get physical therapy evaluation Pain management as needed NS IV fluids Resume levothyroxine Resume Multaq home dose Xarelto 20 mg daily Full code Goals of care discussion with the patient discussed for more than 15 minutes 02/20/2024: Continue physical therapy Consult 7th grade social studies teacher to arrange SNF Plan discussed with: Patient My Orders Orders - SHASTA GILLESPIE MD Procedure Category Date Status Time (Nf) Dronedarone PHA 02/19/24 In Process Hydrochloride (Multaq) 22:00 Levothyroxine Tablet PHA 02/21/24 In Process (Synthroid Tablet) 07:00 * Substation Technician CONS 02/20/24 Transmitted Consult Date of Service: Feb 20, 2024 Billing Provider: SHASTA GILLESPIE MD Common Visit Codes: [id number] INP/OBS CARE(HIGH) SHASTA GILLESPIE MD Feb 20, 2024 14:55
--- NOTE | 2024-02-20 16:03 | DVHSR ---
APPROVED REPORT EXAM: Two-dimensional and M-mode echocardiogram with Doppler and color Doppler. Blood Pressure: 125/50 mmHg INDICATION Pre-Op RISK FACTORS Height: 64, Weight: 141 DIMENSIONS LVDd (3.8-5.7cm)LA (2D)4.0 (1.9-4.0cm)Aortic Root3.0 (2.0-3.7cm) LVDs (2.5-4.0cm)LA (MM) (1.9-4.0cm)Aortic Cusp Exc1.8 (1.5-2.0cm) EF (%) 61.0 (55-70%)Rt. Atrium4.3 (1.9-4.0cm)Asc. Aorta cm Mitral Valve MitralMitral Stenosis E wave0.87m/sMV Mean GR.mmHg A wave1.26m/sMV Peak GR.132mmHg E/A ratio0.72D MVAcm2 DECEL [id number] 1/2 [id number] IVRTmsDop MVA1.90cm2 Aortic Valve Aortic ValveAortic Stenosis V11.45m/Salvatore Mean GR.6mmHg V21.74m/Salvatore Peak GR.12mmHg LVOT Diameter1.8 (1.8-2.4cm)Doppler AVA2.12cm2 Pulmonic Valve V21.28m/s Tricuspid Valve TR Velocity3.74m/s [id number] Other Information Technically limited study due to body habitus and patient position. Patient was laying flat on her b ack during exam. Conclusion Normal left ventricular size and dimension. Normal left ventricular systolic function estimated ejec tion fraction of 60%. There is a grade 1 diastolic dysfunction. Normal right ventricular size and d imension. Normal right ventricular systolic function. Severely elevated right ventricular systolic pressure at 67 mm of mercury. Borderline dilated right and left atria. The aortic valve is mildly thickened and sclerotic. There is moderate mitral annular calcification of the posterior mitral leaflet. There mild mitral valve regurgitation. There is a moderate tricuspid valve regurgitation. The pulmonary valve is grossly normal. No pericardial effusion.
[2024-02-21] VITALS (8 sets, daily range): BP systolic 106–139; BP diastolic 49–59; PULSE 73–87; RESP 14–18; TEMP 97.7–98.4; O2SAT 94–98
[2024-02-21] MEDS: LEVOTHYROXINE SODIUM 112 MCG TAB PO SCH (06:31)
[2024-02-21] MEDS: ENOXAPARIN SOD 30 MG/0.3 ML SYRINGE SC SCH (09:38)
--- NOTE | 2024-02-21 16:01 | DVHPN2 ---
Subjective Doing well No complaints She needs to go to rehab Changes from previous H/P or p: Changes Eyes: No Pain, No Vision change, No Conjunctivae inflammation, No Eyelid inflammation, No Other, No Redness ENT: No Ear pain, No Ear discharge, No Nose pain, No Nose discharge, No Nose congestion, No Mouth pain, No Mouth swelling, No Throat pain, No Throat swelling, No Other Cardiovascular: No Chest Pain, No Palpitations, No Orthopnea, No Paroxysmal Noc. Dyspnea, No Edema, No Lt Headedness, No Other Respiratory: No Cough, No Dry, No Shortness of breath, No SOB with excertion, No Wheezing, No Hemoptysis, No Pleuritic Pain, No Sputum, No Other Gastrointestinal: No Nausea, No Vomiting, No Abdominal Pain, No Diarrhea, No Constipation, No Melena, No Hematochezia, No Other Genitourinary: No Dysuria, No Frequency, No Incontinence, No Hematuria, No Retention, No Other Musculoskeletal: other (Left hip pain); No neck pain, No shoulder pain, No arm pain, No back pain, No hand pain, No leg pain, No foot pain Skin: No Rash, No Lesions, No Jaundice, No Bruising, No Other Objective Vitals Vital Signs Date Time Temp Pulse Resp B/P (MAP) Pulse Ox O2 Delivery O2 Flow Rate FiO2 02/21/24 13:00 97.7 83 16 139/52 (81) 95 97.7 02/21/24 08:00 Room Air* 0 21 Intake/Output Intake and Output 02/21/24 07:00 Intake Total 1285 ml Output Total 400 ml Balance 885 ml Intake Oral 1285 ml Output Urine Total 400 ml General Appearance: Alert, Oriented X3, Cooperative, No acute distress Lungs: Clear to auscultation, Normal air movement Cardiovascular: Regular rate, Normal S1, Normal S2 Abdomen: Normal bowel sounds, Soft, No tenderness Extremities: No edema Medications Current Medications Medications Dose Ordered Sig/Jaki Route Start Time Stop Time Status Last Admin Dose Admin Acetaminophen 650 mg Q6HP PRN PO 02/18/24 13:30 Morphine Sulfate 2 mg Q4HPRN PRN IV 02/18/24 13:30 02/21/24 09:34 2 MG Sodium Chloride 10 ml Q8HR IV 02/19/24 14:00 02/21/24 12:58 10 ML Acetaminophen/ Hydrocodone Bitart 1 tab Q4HP PRN PO 02/19/24 09:15 02/20/24 09:57 1 TAB Patient Own Medication 1 tab BID PO 02/19/24 22:00 02/21/24 09:38 1 TAB Levothyroxine Sodium 112 mcg DAILY PO 02/21/24 07:00 02/21/24 06:31 112 MCG Enoxaparin Sodium 30 mg DAILY SC 02/21/24 10:00 02/21/24 09:38 30 MG Laboratory Results Laboratory Tests 02/20/24 04:40 Assessment/Plan Assessment/Plan Left proximal femur displaced fracture status post ORIF Chronic atrial fibrillation, controlled rate Osteoporosis Hypothyroidism Acute anemia due to blood loss Plan Get physical therapy evaluation Pain management as needed NS IV fluids Resume levothyroxine Resume Multaq home dose Xarelto 20 mg daily Full code Goals of care discussion with the patient discussed for more than 15 minutes 02/20/2024: Continue physical therapy Consult social work instructor to arrange SNF 07/08/2023: Continue physical therapy Continue Lovenox Pain control as needed Discharge to SNF once a bed is available Continue home medication Multaq Plan discussed with: Patient My Orders Orders - SHASTA GILLESPIE MD Procedure Category Date Status Time Imaging Transfer ORDERS 02/21/24 Transmitted Request 11:39 Date of Service: Feb 21, 2024 Billing Provider: SHASTA GILLESPIE MD Common Visit Codes: [id number] INP/OBS CARE(HIGH) SHASTA GILLESPIE MD Feb 21, 2024 16:01
[2024-02-21] MEDS: DOCUSATE SOD 100 MG CAP PO PRN (22:58)
[2024-02-22 01:16] VITALS: BP 145/62; PULSE 72; RESP 18; TEMP 98.4; O2SAT 94
[2024-02-22 05:00] VITALS: BP 158/74; PULSE 74; RESP 18; TEMP 98.3; O2SAT 97
[2024-02-22 09:00] VITALS: BP_SYST 124; BP_SYST 145; BP_DIAS 46; BP_DIAS 68; PULSE 70; PULSE 75; RESP 16; RESP 19; TEMP 98.1; TEMP 98.2; O2SAT 98; O2SAT 99
[2024-02-22 13:00] VITALS: BP 150/50; PULSE 80; RESP 16; TEMP 98.6; O2SAT 96
--- NOTE | 2024-02-22 14:54 | DVHDS2 ---
Discharge Summary Date of Admission Feb 18, 2024 at 13:29 Date of Discharge: Feb 22, 2024 Labs/Diagnostic Data: Laboratory Results Test 02/20/24 04:40 02/18/24 13:06 02/18/24 11:24 White Blood Count 12.2 10^3/uL (4.4-10.8) Red Blood Count 3.07 10^6/uL (4.0-5.20) Hemoglobin 9.3 g/dL (12.2-16.2) Hematocrit 27.9 % (36.0-46.0) Mean Corpuscular Volume 91.0 fL (80.0-100.0) Mean Corpuscular Hemoglobin 30.4 pg (28.0-32.0) Mean Corpuscular Hemoglobin Concent 33.4 g/dL (32.0-36.0) Red Cell Distribution Width 13.8 % (11.8-14.3) Platelet Count 175 10^3/uL (140-450) Mean Platelet Volume 10.4 fL (6.9-10.8) Neutrophils (%) (Auto) 86.9 % (37.0-80.0) Lymphocytes (%) (Auto) 5.9 % (10.0-50.0) Monocytes (%) (Auto) 7.1 % (0.0-12.0) Eosinophils (%) (Auto) 0.0 % (0.0-7.0) Basophils (%) (Auto) 0.1 % (0.0-2.0) Neutrophils # (Auto) 10.6 10 ^3/uL (1.6-8.6) Lymphocytes # (Auto) 0.7 10 ^3/uL (0.4-5.4) Monocytes # (Auto) 0.9 10 ^3/uL (0-1.3) Eosinophils # (Auto) 0 10 ^3/uL (0-0.8) Basophils # (Auto) 0 10 ^3/uL (0-0.2) Nucleated Red Blood Cells 0.0 % Sodium Level 138 mmol/L (136-145) Potassium Level 4.0 mmol/L (3.5-5.1) Chloride Level 105 mmol/L (98-107) Carbon Dioxide Level 28 mmol/L (20-31) Anion Gap 5 (5-15) Blood Urea Nitrogen 14 mg/dL (9-23) Creatinine 0.78 mg/dL (0.550-1.02) Glomerular Filtration Rate Calc 73 mL/min (>90) BUN/Creatinine Ratio 17.9 (10.0-20.0) Serum Glucose 116 mg/dL (74-106) Calcium Level 8.8 mg/dL (8.7-10.4) Magnesium Level 2.3 mg/dL (1.6-2.6) Total Bilirubin 0.5 mg/dL (0.2-1.0) Aspartate Amino Transferase (AST) 33 U/L (13-40) Alanine Aminotransferase (ALT) 14 U/L (7-40) Alkaline Phosphatase 46 U/L (46-116) Total Protein 5.7 g/dL (5.7-8.2) Albumin 3.4 g/dL (3.2-4.8) Troponin I High Sensitivity 5 ng/L (</=34) Prothrombin Time 13.0 sec (9.3-11.8) Prothrombin Time INR 1.25 (0.9-1.15) Activated Partial Thromboplast Time 32.5 SEC (24.5-34.5) Other Laboratory Tests 02/20/24 04:40 Brief Hx & Hospital Course: Final diagnoses: Left proximal femur displaced fracture status post ORIF Chronic atrial fibrillation, controlled rate Osteoporosis Hypothyroidism Acute anemia due to blood loss She fell at home and sustained a fracture that required surgery, she had ORIF of the left femur, she did very well postoperatively and started physical therapy She was evaluated for rehab at [facility] and she was accepted Discharge planning is to go to [facility] for rehab Will be on Lovenox 30 mg daily She takes Multaq at home which will be continued Discharge once a bed is available Condition at Discharge: Stable Final Diagnosis/Problems List L hip fx s/p ORIF Discharge Disposition: Inpatient Rehab Facility SNF Discharge Will this Physician continue t: No Discharge Instruct/Medications Diet: Cardiac 2g Na,low cholest Activity: No Restrictions, As Tolerated Follow Up/Referral: Accepting MD Medications: See Med Rec Discharge Statement: "Patient was advised to return to the ER or call 911 if any headaches, dizziness, shortness of breath, chest pain, abdominal pain, bleeding, fevers, or worsening of medical condition. Patient was counseled about treatment plan, medications, possible side effects, patientverbalized understanding. All questions were answered to the best of my ability. This discharge took greater then 30 minutes in planning, reviewing documentation, counseling the patient, and discussing with other team members." ASSESSMENT ASSESSMENT Assessment L hip fx s/p ORIF Date of Service: Feb 22, 2024 Billing Provider: SHASTA GILLESPIE MD Common Visit Codes: [id number] DISCH DAY >30min SHASTA GILLESPIE MD Feb 22, 2024 14:54
[2024-02-22 17:00] VITALS: BP 84/34; PULSE 64; RESP 20; TEMP 98.4; O2SAT 95
== END 2024-02-22 20:30 | DRG 481 ==
LOC: ER 10:55 → EDBD 10:55 → OVERFLOW 13:29 → WEST WING 16:23
PROVIDERS: ADMIT Registered Nurse; ATTEND Internal Medicine Geriatric Medicine
PROC: 0QS736Z Reposition Left Upper Femur with Intramedullary Internal Fixation Device, Percutaneous Approach (ICD-10-PCS; principal; 2024-02-19 07:38)
DX: S72.142A Displaced intertrochanteric fracture of left femur, initial encounter for closed fracture (principal); D62 Acute posthemorrhagic anemia; I48.20 Chronic atrial fibrillation, unspecified; I48.0 Paroxysmal atrial fibrillation; S72.22XA Displaced subtrochanteric fracture of left femur, initial encounter for closed fracture; M81.0 Age-related osteoporosis without current pathological fracture; Z79.01 Long term (current) use of anticoagulants; Z88.0 Allergy status to penicillin; Z90.710 Acquired absence of both cervix and uterus; W18.39XA Other fall on same level, initial encounter; Y93.89 Activity, other specified; Y92.22 Religious institution as the place of occurrence of the external cause; Y99.8 Other external cause status
CPT/HCPCS: 36415; 71045; 72192; 73502; 73700; 76000; 80048; 80053; 83735; 84484; 85025; 85610; 85730; 86850; 86900; 86901; 93005; 93306; 97110; 97116; 97163; 97530; G0378; J0171; J1100; J2003; J2250; J2405; J2704